=== PATIENT | male | born 1955 | race Caucasian/White ===

== ENCOUNTER 2017-08-29 10:06 | Inpatient (IN) | payer OTHER ==
[~2017-08-29] VITALS: Ht 193 cm; Wt 124.8 kg
[2017-08-29] VITALS (7 sets, daily range): BP systolic 144–196; BP diastolic 65–93
--- NOTE | ~2017-08-29 | PR ---
[place], [place] PROGRESS NOTE NAME: LISA FLETCHER [facility] #: [id number] UNIT #: [id number] ROOM: 405 DOCTOR: CHERYL INIGUEZ MD BIRTHDATE: [birth year] DOS: SUBJECTIVE: The patient was seen in the cardiology department just prior to a stress test. He is a 62-year-old man who has a history of coronary artery disease. He presented with unstable angina in November 2015 and was sent to [facility]. Review of records shows that he had a bare metal stent placed in the right coronary artery 12/06/2015. His current pains prompting this admission are reminiscent of the pains he had at that time; however, he shows no acute EKG changes or elevation in cardiac troponin. This morning, he stated that he did have a slight amount of chest discomfort when he first got up, but it resolved quickly. PHYSICAL EXAMINATION: VITAL SIGNS: Today, his pulse is 56 and regular, blood pressure was 172/72. He was afebrile. He weighed 124.8 kilograms with a body mass index of 33.5. NECK: Supple. He had no jugular distention. Carotids were full. LUNGS: Respirations were unlabored, but he does have expiratory prolongation and wheezes at the bases bilaterally. HEART: Had a regular rhythm with an S4 gallop. ABDOMEN: Soft. EXTREMITIES: Showed no edema. LABORATORY DATA: His electrocardiogram once again showed sinus rhythm without acute ST or T-wave changes. IMPRESSION: 1. History of coronary artery disease and unstable angina in November 2015. 2. Admitted with chest pain. Thus far, there is no evidence for acute myocardial infarction despite several hours of pain. PLAN: We will proceed with a pharmacologic stress test. Further recommendations will depend upon the results of the stress test. CHERYL INIGUEZ MD CM:PNTRANS 8 0 CHERYL INIGUEZ MD 08/30/1750 interface
[~2017-08-29 10:06] MED LIST: COUMADIN10 M1 PO; ELIQUIS5 M1 PO; HYDROCHLOROTHIA25 MG PO; Metformin Hydr500 MG PO; PYRIDIUM200 MG PO; Percocet 325 MG1 TAB PO; TENORMIN50 MG PO
[2017-08-29 10:28] LABS: BASO # 0.1 10*3/uL (0.0-0.1); BASO % 0.7 % (0.0-1.0); EOS # 0.1 10*3/uL (0.0-0.4); EOS % 1.1 % (1.0-4.0); HEMOGLOBIN 15.7 g/dl (14.0-18.0); LYMPH # 2.3 10*3/uL (1.3-4.4); LYMPH % 25.5 % (27.0-41.0); MEAN CELL VOLUME 89.1 fl (80.0-94.0); MEAN CORPUSCULAR HGB 30.4 pg (27.0-31.0); MEAN CORPUSCULAR HGB CONC 34.1 g/dl (33.0-37.0); MONO # 0.6 10*3/uL (0.1-1.0); MONO % 6.8 % (3.0-9.0); NEUT % 65.7 % (47.0-73.0); PLATELET COUNT AUTOMATED 221 10*3/uL (130-400); RED BLOOD COUNT 5.16 10*6/uL (4.50-5.90); RED CELL DISTRI WIDTH 14.6 % (0-14.5); WHITE BLOOD COUNT 9.2 10*3/uL (4.8-10.8)
[2017-08-29 10:37] LABS: ACT PARTIAL THROMBO TIME 27.6 SECONDS (20.8-31.5); INTERNATIONAL NORM RATIO 1.1 (2.0-3.5)
[2017-08-29 10:48] LABS: ALKALINE PHOSPHATASE 101 U/L (45-117); BUN 10 mg/dl (7-24); CHLORIDE 104 mmol/L (98-107); CREATININE 0.85 mg/dL (0.70-1.30); POTASSIUM 4.1 mmol/L (3.5-5.1); SGOT/AST 7 IU/L (3-35); SGPT/ALT 16 U/L (12-78); SODIUM 138 mmol/L (136-145); TOTAL PROTEIN 7.4 gm/dL (6.4-8.2)
[2017-08-29 10:49] LABS: TROPONIN I < 0.015 ng/ml (<0.045)
[2017-08-29] MEDS ORDERED: TRAZODONE100 MG PO (11:52)
[2017-08-29] MEDS ORDERED: RESTORIL30 M1 PO (11:52)
[2017-08-29] MEDS ORDERED: ZESTRIL10 MG PO (11:52)
[2017-08-29] MEDS ORDERED: ASPIRIN CHEWABL81 MG PO (11:53)
[2017-08-29] MEDS ORDERED: LIPITOR40 MG PO (11:53)
[2017-08-30] VITALS: BP 120/54
[2017-08-30 06:40] LABS: BASO # 0.1 10*3/uL (0.0-0.1); BASO % 0.8 % (0.0-1.0); EOS # 0.2 10*3/uL (0.0-0.4); EOS % 2.3 % (1.0-4.0); HEMATOCRIT 42.7 % (42.0-52.0); HEMOGLOBIN 14.9 g/dl (14.0-18.0); LYMPH # 1.9 10*3/uL (1.3-4.4); LYMPH % 24.6 % (27.0-41.0); MEAN CELL VOLUME 90.7 fl (80.0-94.0); MEAN CORPUSCULAR HGB 31.6 pg (27.0-31.0); MEAN CORPUSCULAR HGB CONC 34.9 g/dl (33.0-37.0); MEAN PLATELET VOLUME 9.3 fl (9.6-12.3); MONO # 0.6 10*3/uL (0.1-1.0); MONO % 7.7 % (3.0-9.0); NEUT # 4.9 10*3/uL (2.3-7.9); NEUT % 64.3 % (47.0-73.0); PLATELET COUNT AUTOMATED 180 10*3/uL (130-400); RED BLOOD COUNT 4.71 10*6/uL (4.50-5.90); RED CELL DISTRI WIDTH 14.7 % (0-14.5); WHITE BLOOD COUNT 7.7 10*3/uL (4.8-10.8)
[2017-08-30 07:27] LABS: PHOSPHOROUS 2.8 mg/dL (2.5-4.9)
[2017-08-30 07:32] LABS: FREE T4 1.31 ng/dl (0.76-1.46); THYROID STIM HORMONE (HS) 0.302 uIU/ml (0.358-4.75)
[2017-08-30 08:00] VITALS: BP 172/72
[2017-08-30 12:00] VITALS: BP 140/58
[2017-08-30 16:00] VITALS: BP 151/69
== END 2017-08-30 17:05 | disposition home or self-care (01) | DRG 392 ==
LOC: ED 10:06 → 4E 11:06 → EDHOLD 11:06 → 4E 11:08
PROVIDERS: Physician Assistant; Student in an Organized Health Care Education/Training Program; ADMIT Internal Medicine
PROC: 4A02XM4 Measurement of Cardiac Total Activity, External Approach (ICD-10-PCS; principal; 2017-08-30)
PROC: 3E073KZ Introduction of Other Diagnostic Substance into Coronary Artery, Percutaneous Approach (ICD-10-PCS; principal; 2017-08-30)
DX: K21.9 Gastro-esophageal reflux disease without esophagitis (principal); E11.65 Type 2 diabetes mellitus with hyperglycemia; E83.41 Hypermagnesemia; I48.0 Paroxysmal atrial fibrillation; I20.0 Unstable angina; I25.2 Old myocardial infarction; D72.810 Lymphocytopenia; E66.09 Other obesity due to excess calories; R07.89 Other chest pain; I10 Essential (primary) hypertension; E78.5 Hyperlipidemia, unspecified; Z96.653 Presence of artificial knee joint, bilateral; Z71.6 Tobacco abuse counseling; Z72.0 Tobacco use; Z79.01 Long term (current) use of anticoagulants; Z68.33 Body mass index [BMI] 33.0-33.9, adult; Z91.018 Allergy to other foods; Z79.899 Other long term (current) drug therapy; Z83.3 Family history of diabetes mellitus; Z82.49 Family history of ischemic heart disease and other diseases of the circulatory system; Z81.8 Family history of other mental and behavioral disorders

== ENCOUNTER 2017-10-10 19:19 | Inpatient (IN) | payer OTHER ==
[~2017-10-10] VITALS: Ht 193 cm; Wt 126.8 kg
[~2017-10-10 19:19] MED LIST changes: +ASPIRIN CHEWABL81 MG PO; +LIPITOR40 MG PO; +RESTORIL30 M1 PO; +TRAZODONE100 MG PO; +ZESTRIL10 MG PO
[2017-10-10 19:24] VITALS: BP 174/96
[2017-10-10 20:05] LABS: BASO # 0.1 10*3/uL (0.0-0.1); BASO % 0.6 % (0.0-1.0); EOS # 0.3 10*3/uL (0.0-0.4); EOS % 3.5 % (1.0-4.0); HEMATOCRIT 39.4 % (42.0-52.0); HEMOGLOBIN 13.7 g/dl (14.0-18.0); LYMPH # 2.4 10*3/uL (1.3-4.4); LYMPH % 28.5 % (27.0-41.0); MEAN CORPUSCULAR HGB 31.6 pg (27.0-31.0); MEAN CORPUSCULAR HGB CONC 34.8 g/dl (33.0-37.0); MEAN PLATELET VOLUME 9.2 fl (9.6-12.3); MONO # 0.6 10*3/uL (0.1-1.0); MONO % 7.4 % (3.0-9.0); NEUT # 5.1 10*3/uL (2.3-7.9); NEUT % 59.6 % (47.0-73.0); PLATELET COUNT AUTOMATED 186 10*3/uL (130-400); RED BLOOD COUNT 4.33 10*6/uL (4.50-5.90); RED CELL DISTRI WIDTH 13.7 % (0-14.5); WHITE BLOOD COUNT 8.5 10*3/uL (4.8-10.8)
[2017-10-10 20:13] LABS: INTERNATIONAL NORM RATIO 1.1 (2.0-3.5)
[2017-10-10 20:26] LABS: ALBUMIN 3.5 gm/dl (3.1-4.5); ALKALINE PHOSPHATASE 100 U/L (45-117); BUN 12 mg/dl (7-24); CHLORIDE 106 mmol/L (98-107); CREATININE 0.82 mg/dL (0.70-1.30); SGOT/AST 10 IU/L (3-35); SGPT/ALT 16 U/L (12-78); SODIUM 139 mmol/L (136-145); TOTAL PROTEIN 6.5 gm/dL (6.4-8.2)
[2017-10-10 20:28] LABS: TROPONIN I < 0.015 ng/ml (<0.045)
--- NOTE | 2017-10-10 21:22 | NUR ---
PT NOT IN EXAM ROOM @ THIS TIME FOR I.V. START AND CARDIAC MONITORING FOR ADMITTANCE.
[2017-10-10 21:37] VITALS: BP 182/80
--- NOTE | 2017-10-10 22:00 | NUR ---
Time: 2204 A 62 year old MALE admitted to 5E under services of VONNIE REBOLLEDO DO. Pt. arrived via bed from ER. Chief complaint: SOB, EDEMA. ESME SAINZ
[2017-10-10 22:05] VITALS: BP 181/80
--- NOTE | 2017-10-10 22:14 | NUR ---
PT PLACED ON MONITOR WITH PT ATTENDENT IN ROOM 504 BED 2,NO ACUTE DISTRESS NOTED.
--- NOTE | 2017-10-11 02:00 | NUR ---
PT RESTING IN BED WITH EYES CLOSED. NO S AND S OF ACUTE DISTRESS NOTED AT THIS TIME. TELE MONITOR INTACT. RESPS EASY AND REGULAR.
[2017-10-11 04:00] VITALS: BP 172/84
--- NOTE | 2017-10-11 05:54 | NUR ---
RN NOTIFIED ANSWERING SERVICE FOR DR INIGUEZ FOR NEW CONSULT OF NEW ONSET CHF. CURRENTLY AWAITING RETURN CALL.
[2017-10-11 06:44] LABS: BASO # 0.1 10*3/uL (0.0-0.1); BASO % 0.7 % (0.0-1.0); EOS # 0.3 10*3/uL (0.0-0.4); EOS % 3.7 % (1.0-4.0); HEMATOCRIT 40.9 % (42.0-52.0); HEMOGLOBIN 14.2 g/dl (14.0-18.0); LYMPH # 2.1 10*3/uL (1.3-4.4); LYMPH % 25.6 % (27.0-41.0); MEAN CELL VOLUME 91.9 fl (80.0-94.0); MEAN CORPUSCULAR HGB 31.9 pg (27.0-31.0); MEAN CORPUSCULAR HGB CONC 34.7 g/dl (33.0-37.0); MEAN PLATELET VOLUME 9.4 fl (9.6-12.3); MONO # 0.7 10*3/uL (0.1-1.0); MONO % 8.8 % (3.0-9.0); NEUT # 4.9 10*3/uL (2.3-7.9); PLATELET COUNT AUTOMATED 192 10*3/uL (130-400); RED BLOOD COUNT 4.45 10*6/uL (4.50-5.90); RED CELL DISTRI WIDTH 13.8 % (0-14.5)
[2017-10-11 07:18] LABS: ALBUMIN 3.6 gm/dl (3.1-4.5); BUN 11 mg/dl (7-24); CHLORIDE 105 mmol/L (98-107); CHOLESTEROL 102 mg/dL (<200); CREATININE 0.82 mg/dL (0.70-1.30); FREE T4 1.33 ng/dl (0.76-1.46); HDL CHOLESTEROL 53 mg/dl (40-60); LDL CHOLESTEROL 36 mg/dL (9-159); PHOSPHOROUS 3.7 mg/dL (2.5-4.9); POTASSIUM 4.3 mmol/L (3.5-5.1); SGOT/AST 11 IU/L (3-35); SGPT/ALT 16 U/L (12-78); SODIUM 143 mmol/L (136-145); TRIGLYCERIDES 65 mg/dl (<150); VLDL CHOLESTEROL 13 mg/dL (6-40)
[2017-10-11 07:23] LABS: ALKALINE PHOSPHATASE 97 U/L (45-117); THYROID STIM HORMONE (HS) 0.645 uIU/ml (0.358-4.75); TOTAL PROTEIN 6.4 gm/dL (6.4-8.2)
--- NOTE | 2017-10-11 07:51 | NUR ---
NOTIFIED DR INIGUEZ'S GROUP ANSWERING SERVICE OF NEW CONSULT FOR NEW ONSET CHF. AWAITING CALL BACK FROM DR DUENAS.
[2017-10-11 08:00] VITALS: BP 180/66
--- NOTE | 2017-10-11 08:30 | NUR ---
Sales Service Coordinator in to talk to patient. Patient states lives at home with family. There are 14 steps in the home. Physician: Dr. Mukesh Burkett Pharmacy: [facility] Home health services: none at present, previously when he had knee replacement but doesn't remember who the company was Patient's level of ADLs: INDEPENDENT Patient has working utilities: yes DME: none Follow-up physician's appointment after d/c: will be made by hospitalist nurse director upon discharge Does patient want to access PORTAL?: no Discharge plan discussed with patient. He lives at home with 11 family members. He is independent in his ADLs and ambulation. He denies any home needs at present. When medically stable he will be discharged to home. ROSHAN ARROYO
--- NOTE | 2017-10-11 08:32 | NUR ---
RECONCILED MEDS WITH PT AT BEDSIDE.
[2017-10-11 08:37] LABS: VITAMIN D, 25-HYDROXY 13.3 ng/mL (30-100)
--- NOTE | 2017-10-11 08:40 | NUR ---
NOTIFIED DR DIAMOND OF NEW CONSULT AND ALSO OF PT BP 180/66 MANUALLY. ORDERS RECIEVED.
--- NOTE | 2017-10-11 09:17 | NUR ---
MEDICATED PT WITH SCHEDULED LISINIPRIL 10 MG,ATENOLOL, AND 40 MG LASIX IV NOW PER PHYSICIAN ORDER.
--- NOTE | 2017-10-11 10:10 | NUR ---
PERCOSET 5/325 MG GIVEN FOR C/O L FOOT PAIN .06/07.
[2017-10-11 12:00] VITALS: BP 163/67
--- NOTE | 2017-10-11 13:47 | NUR ---
PERCOSET 5/325 MG GIVEN FOR C/O LEG/BACK PAIN,06/07.
[2017-10-11 16:00] VITALS: BP 146/68
--- NOTE | 2017-10-11 17:06 | NUR ---
PERCOSET 5/325 MG GIVEN FOR C/O LEG/BACK PAIN,05/07.
--- NOTE | 2017-10-11 19:51 | NUR ---
PT RESTING IN BED WITH VISITOR PRESENT. C/O PAIN IN LEG, FOOT AND BACK. SCATTERED RHONCHI HEARD ON AUSCULTATION, BS NORMO WITH NO TENDERNESS, RIGHT FOOT EDEMA WITH 1+ PITTING NOTED. BRADYCARDIC WITH HR OF 49. NO OTHER C/O AT THIS TIME, CALL LIGHT WITHIN REACH.
[2017-10-11 20:00] VITALS: BP 131/65
--- NOTE | 2017-10-11 20:08 | NUR ---
PT MEDICATED WITH PERCOCET PER REQUEST FOR C/O LEG AND BACK PAIN, PT STATES FOOT PAIN HAS DECREASED. WILL MONITOR EFFECTIVENESS. NO FURTHER C/O AT THIS TIME, CALL LIGHT WITHIN REACH.
--- NOTE | 2017-10-11 20:44 | NUR ---
24 HOUR CHART CHECK COMPLETED AT THIS TIME.
[2017-10-12] VITALS: BP 147/79
--- NOTE | 2017-10-12 01:35 | NUR ---
PT MEDICATED FOR PAIN PER REQUEST. PERCOCET PO GIVEN FOR C/O CHRONIC BACK PAIN 04/07. WILL MONITOR FOR EFFECTIVENESS.
--- NOTE | 2017-10-12 05:30 | NUR ---
PT GIVEN PRN PERCOCET FOR C/O PAIN RATED 6/10 IN HIS LEGS AND KNEES. PT IS OTHERWISE CONTENT AND HAS NO OTHER COMPLAINTS AT THIS TIME. CALL LIGHT WITHIN REACH.
[2017-10-12 08:00] VITALS: BP 155/76
--- NOTE | 2017-10-12 08:30 | NUR ---
Second Grade Teacher in to see patient. He denies any home needs at this time. When medically stable he will be discharged to home.
--- NOTE | 2017-10-12 08:47 | NUR ---
PATIENT MEDICATED WITH PO PAIN MEDICATION FOR PAIN 7/10 IN HIS KNEES AND BACK.
[2017-10-12 12:00] VITALS: BP 176/83
[2017-10-12] MEDS ORDERED: LASIX20 MG PO (15:22)
--- NOTE | 2017-10-12 17:05 | NUR ---
Discharge instructions reviewed with patient/family. Patient receptive and verbalizes understanding. Follow-up care arranged. Written instructions given to patient/family. FELIPE CLANCY
== END 2017-10-12 17:05 | disposition home or self-care (01) | DRG 293 ==
LOC: ED 19:19 → EDHOLD 21:16 → 5E 21:16
PROVIDERS: Family Medicine; Physician Assistant; ADMIT Internal Medicine
DX: I11.0 Hypertensive heart disease with heart failure (principal); E83.41 Hypermagnesemia; I48.91 Unspecified atrial fibrillation; E66.09 Other obesity due to excess calories; R00.1 Bradycardia, unspecified; R73.9 Hyperglycemia, unspecified; I50.31 Acute diastolic (congestive) heart failure; E78.5 Hyperlipidemia, unspecified; I25.10 Atherosclerotic heart disease of native coronary artery without angina pectoris; Z71.6 Tobacco abuse counseling; Z79.82 Long term (current) use of aspirin; Z79.899 Other long term (current) drug therapy; I25.2 Old myocardial infarction; Z79.01 Long term (current) use of anticoagulants; Z68.34 Body mass index [BMI] 34.0-34.9, adult; Z82.49 Family history of ischemic heart disease and other diseases of the circulatory system; Z82.0 Family history of epilepsy and other diseases of the nervous system

== ENCOUNTER → 2019-09-22 | Outpatient (CLI) | payer OTHER ==
[~2019-09-22] MED LIST changes: +LASIX20 MG PO
[2019-09-22 10:52] LABS: BUN 11 mg/dl (7-24); CHLORIDE 107 mmol/L (98-107); CHOLESTEROL 166 mg/dL (<200); CREATININE 0.83 mg/dL (0.70-1.30); POTASSIUM 4.1 mmol/L (3.5-5.1); SODIUM 140 mmol/L (136-145); TRIGLYCERIDES 69 mg/dl (<150); VLDL CHOLESTEROL 14 mg/dL (6-40)
[2019-09-22 10:53] LABS: HDL CHOLESTEROL 71 mg/dl (40-60); LDL CHOLESTEROL 81 mg/dL (9-159)
== END | disposition home or self-care (01) ==
LOC: LAB 09:40
PROVIDERS: Family Medicine
DX: I48.21 Permanent atrial fibrillation (principal); E78.2 Mixed hyperlipidemia

== ENCOUNTER 2020-09-25 12:17 | Emergency (ER) | payer OTHER ==
[~2020-09-25] VITALS: Ht 193 cm; Wt 127.9 kg
== END 2020-09-25 14:51 | disposition home or self-care (01) ==
LOC: ED 12:17
DX: S60.222A Contusion of left hand, initial encounter (principal); Z79.899 Other long term (current) drug therapy; Z79.82 Long term (current) use of aspirin; X58.XXXA Exposure to other specified factors, initial encounter; Y93.89 Activity, other specified; Y92.89 Other specified places as the place of occurrence of the external cause; Y99.8 Other external cause status

== ENCOUNTER → 2022-03-21 | Outpatient (CLI) | payer OTHER ==
[2022-03-21 12:11] LABS: BUN 10 mg/dl (7-24); CHLORIDE 105 mmol/L (98-107); CHOLESTEROL 149 mg/dL (<200); CREATININE 0.89 mg/dL (0.70-1.30); POTASSIUM 4.3 mmol/L (3.5-5.1); SODIUM 140 mmol/L (136-145); TRIGLYCERIDES 53 mg/dl (<150)
[2022-03-21 12:13] LABS: LDL CHOLESTEROL 78 mg/dL (9-159)
== END ==
LOC: LAB 11:24
PROVIDERS: ATTEND Family Medicine
DX: I10 Essential (primary) hypertension (principal); E78.2 Mixed hyperlipidemia

== ENCOUNTER → 2023-03-23 | Outpatient (CLI) | payer OTHER | END | disposition home or self-care (01) | LOC: US 08:00 | PROVIDERS: ATTEND Family Medicine | DX: I70.203 Unspecified atherosclerosis of native arteries of extremities, bilateral legs (principal); R60.9 Edema, unspecified ==

== ENCOUNTER 2023-10-20 19:01 | Inpatient (IN) | payer OTHER ==
[2023-10-20] VITALS (8 sets, daily range): BP systolic 123–145; BP diastolic 68–87
[~2023-10-20] VITALS: Ht 185.4 cm; Wt 113.7 kg
[2023-10-20 19:36] LABS: BASO % 0.2 % (0.0-1.0); EOS % 0.5 % (1.0-4.0); HEMATOCRIT 33.6 % (42.0-52.0); LYMPH # 0.8 10*3/uL (1.3-4.4); LYMPH % 19.3 % (27.0-41.0); MEAN CELL VOLUME 82.4 fl (80.0-94.0); MEAN CORPUSCULAR HGB 21.8 pg (27.0-31.0); MEAN CORPUSCULAR HGB CONC 26.5 g/dl (33.0-37.0); MONO # 0.4 10*3/uL (0.1-1.0); MONO % 9.6 % (3.0-9.0); NEUT % 69.7 % (47.0-73.0); PLATELET COUNT AUTOMATED 129 10*3/uL (130-400); RED BLOOD COUNT 4.08 10*6/uL (4.50-5.90); RED CELL DISTRI WIDTH 24.1 % (0-14.5); WHITE BLOOD COUNT 4.3 10*3/uL (4.8-10.8)
[2023-10-20 19:48] LABS: ACT PARTIAL THROMBO TIME 36.7 SECONDS (20.0-32.1)
[2023-10-20 20:02] LABS: ALKALINE PHOSPHATASE 59 U/L (46-116); BUN 12 mg/dl (9-23); CHLORIDE 102 mmol/L (98-107); POTASSIUM 3.2 mmol/L (3.4-5.1); TOTAL PROTEIN 6.4 gm/dL (6.0-8.0)
[2023-10-20 20:12] LABS: SGPT/ALT < 7 U/L (5-49)
[2023-10-21] VITALS (16 sets, daily range): BP systolic 113–150; BP diastolic 64–93
[2023-10-21 03:41] LABS: BASO % 0.5 % (0.0-1.0); EOS % 0.5 % (1.0-4.0); HEMATOCRIT 34.9 % (42.0-52.0); LYMPH # 0.8 10*3/uL (1.3-4.4); LYMPH % 13.4 % (27.0-41.0); MEAN CELL VOLUME 81.5 fl (80.0-94.0); MEAN CORPUSCULAR HGB 21.7 pg (27.0-31.0); MEAN CORPUSCULAR HGB CONC 26.6 g/dl (33.0-37.0); MEAN PLATELET VOLUME 9.7 fl (9.6-12.3); MONO # 0.6 10*3/uL (0.1-1.0); MONO % 11.1 % (3.0-9.0); NEUT # 4.2 10*3/uL (2.3-7.9); NEUT % 74.1 % (47.0-73.0); PLATELET COUNT AUTOMATED 146 10*3/uL (130-400); RED BLOOD COUNT 4.28 10*6/uL (4.50-5.90); WHITE BLOOD COUNT 5.6 10*3/uL (4.8-10.8)
[2023-10-21 04:05] LABS: BUN 11 mg/dl (9-23); CHLORIDE 101 mmol/L (98-107); CHOLESTEROL 81 mg/dL (<200); FREE T4 1.08 ng/dl (0.89-1.76); LDL CHOLESTEROL 28 mg/dL (9-159); POTASSIUM 3.6 mmol/L (3.4-5.1); TRIGLYCERIDES 92 mg/dl (<150); VITAMIN D, 25-HYDROXY 11.1 ng/mL (30-100)
[2023-10-21 04:39] LABS: BILIRUBIN Negative (Negative); BLOOD Negative (Negative); CLARITY Clear (Clear); COLOR Yellow (Yellow); GLUCOSE Negative (Negative); KETONE Negative (Negative); NITRITE Negative (Negative)
[2023-10-21 05:30] LABS: BACTERIA 1+; LEUKO ESTERASE Trace (Negative)
[2023-10-21] MEDS ORDERED: PERCOCET 5-3251 EACH PO (10:37)
[2023-10-21] MEDS ORDERED: PROAIR RESPICL90 MCG INH (10:40)
[2023-10-21] MEDS ORDERED: IRON325 M1 PO (10:43)
[2023-10-21] MEDS ORDERED: FLOMAX0.4 MG PO (10:44)
[2023-10-22] VITALS (9 sets, daily range): BP systolic 109–140; BP diastolic 63–87
[2023-10-22 04:52] LABS: BUN 7 mg/dl (9-23); CHLORIDE 99 mmol/L (98-107)
[2023-10-22 06:25] LABS: BASO % 0.4 % (0.0-1.0); EOS # 0.1 10*3/uL (0.0-0.4); EOS % 1.9 % (1.0-4.0); HEMATOCRIT 35.6 % (42.0-52.0); LYMPH # 0.9 10*3/uL (1.3-4.4); LYMPH % 19.1 % (27.0-41.0); MEAN CELL VOLUME 80.4 fl (80.0-94.0); MEAN CORPUSCULAR HGB 22.1 pg (27.0-31.0); MEAN CORPUSCULAR HGB CONC 27.5 g/dl (33.0-37.0); MEAN PLATELET VOLUME 10.2 fl (9.6-12.3); MONO # 0.4 10*3/uL (0.1-1.0); MONO % 8.9 % (3.0-9.0); NEUT # 3.3 10*3/uL (2.3-7.9); NEUT % 69.3 % (47.0-73.0); PLATELET COUNT AUTOMATED 146 10*3/uL (130-400); RED BLOOD COUNT 4.43 10*6/uL (4.50-5.90); RED CELL DISTRI WIDTH 24.8 % (0-14.5); WHITE BLOOD COUNT 4.8 10*3/uL (4.8-10.8)
[2023-10-22] MEDS ORDERED: LEVALBUTER1.25 MG/4 NEB (18:40)
[2023-10-22] MEDS ORDERED: METOPROLOL SUCC50 M1 PO (18:40)
[2023-10-22] MEDS ORDERED: ZITHROMAX TRI-500 M1 PO (18:41)
[2023-10-22] MEDS ORDERED: LASIX20 MG PO (18:44)
== END 2023-10-22 19:11 | disposition home or self-care (01) | DRG 871 ==
LOC: ED 19:01 → 4E 23:16 → EDHOLD 23:16 → 4E 10-21 02:06
PROVIDERS: Nurse Practitioner Family; Student in an Organized Health Care Education/Training Program; ADMIT Internal Medicine; ATTEND Internal Medicine
DX: A41.9 Sepsis, unspecified organism (principal); I50.33 Acute on chronic diastolic (congestive) heart failure; J18.9 Pneumonia, unspecified organism; D61.818 Other pancytopenia; E44.0 Moderate protein-calorie malnutrition; I48.19 Other persistent atrial fibrillation; R65.20 Severe sepsis without septic shock; E87.6 Hypokalemia; Z20.822 Contact with and (suspected) exposure to COVID-19; I08.0 Rheumatic disorders of both mitral and aortic valves; Z96.653 Presence of artificial knee joint, bilateral; F17.210 Nicotine dependence, cigarettes, uncomplicated; R73.9 Hyperglycemia, unspecified; J44.9 Chronic obstructive pulmonary disease, unspecified; E66.9 Obesity, unspecified; E78.2 Mixed hyperlipidemia; I25.10 Atherosclerotic heart disease of native coronary artery without angina pectoris; Z79.899 Other long term (current) drug therapy; Z82.49 Family history of ischemic heart disease and other diseases of the circulatory system; Z81.8 Family history of other mental and behavioral disorders; Z68.34 Body mass index [BMI] 34.0-34.9, adult